=== PATIENT | male | born 1995 | race Caucasian/White ===

== ENCOUNTER 2023-01-12 17:53 | Emergency (ER) | payer OTHER, SELFPAY ==
[2023-01-12 17:57] VITALS: BP 135/86; PULSE 96; RESP 16; TEMP 36.1; O2SAT 100; BMI 28.2
--- NOTE | 2023-01-12 18:12 | ED_ITS ---
HPI - Skin/Abscess/Foreign Bdy General Chief complaint: Skin/Abscess/Foreign Body Stated complaint: R face swelling Time Seen by Provider: 01/12/23 18:02 History of Present Illness HPI narrative: This 27-year-old male comes in reporting 2 days of redness swelling and discomfort in his right cheek and face. He does not report any fevers or sore throat. He does have some increased erythema and swelling over his chin. Related Data Home Medications Medication Instructions Recorded Confirmed dextroamphetamine-amphetamine ER 2 cap PO DAILY 01/12/23 01/12/23 25 mg 24hr capsule,extend release Allergies Allergy/AdvReac Type Severity Reaction Status Date / Time No Known Drug Allergies Allergy Verified 01/12/23 17:57 Review of Systems Status of ROS: Reports: 10 or more systems reviewed and unremarkable except as noted in History and below Narrative: Constitutional: No fevers, no weight gain or loss. Eyes: No discharge. No vision changes. HENT: He reports some right ear pain. Cardiovascular: No chest pain, no palpitations. Respiratory: No shortness of breath, no wheezes, no cough. Gastrointestinal: No abdominal pain, no vomiting, no diarrhea. Genitourinary: No dysuria, no hematuria. Musculoskeletal: Normal range of motion. Skin: No rashes, no pruritis. Erythema, swelling, and pain in the right face and cheek. Neurological: No dizziness, weakness, sensory change, speech change. Endo/Heme/Allergies: No bruising or bleeding. No polydipsia. Pysch: no suicidality, no anxiety, no insomnia. All other systems reviewed and are negative. Exam Narrative: Exam Narrative: Constitutional: Well-developed, well-nourished, no acute distress. HEENT: Erythema along the right cheek with some increased swelling over his chin. Skin changes in this area also are suspicious for impetigo. Neck: Normal range of motion. Nontender. Supple. Heart: Regular. No murmurs. Normal rate. Intact distal pulses. Lungs: Clear to auscultation. No chest discomfort. No wheezes, rhonchi, or rales. Abdomen: Normal bowel sounds. Nontender. No rebound tenderness. Genitalia: Deferred. Back: No midline tenderness. Normal range of motion. Extremities: Normal range of motion. No injury. Skin: Intact. No rash. Warm. No erythema or pallor. Neurologic: No altered sensation. No weakness. Alert and oriented. Psychiatric: No suicidality. No anxiety or depression. No insomnia. Nursing notes and vitals signs are reviewed. Const: Vital Signs, click to edit/add: Vital Signs - 24 hr 01/12/23 17:57 Temperature 97 F L Pulse Rate [Pulse Oximeter] 96 Respiratory Rate 16 Blood Pressure [Ri ght Upper Arm] 135/86 Pulse Oximetry 100 Oxygen Delivery Me thod Room Air Course Vital Signs Vital signs: Initial Vital Signs Temperature 97 F L 01/12/23 17:57 Temperature Source Temporal Artery Scan 01/12/23 17:57 Pulse Rate 96 01/12/23 17:57 Respiratory Rate 16 01/12/23 17:57 Blood Pressure 135/86 01/12/23 17:57 Blood Pressure Mean 102 01/12/23 17:57 Blood Pressure Position Sitting 01/12/23 17:57 Pulse Oximetry 100 01/12/23 17:57 Oxygen Delivery Method Room Air 01/12/23 17:57 Vital Signs Temperature 97 F L 01/12/23 17:57 Pulse Rate 96 01/12/23 17:57 Respiratory Rate 16 01/12/23 17:57 Blood Pressure 135/86 01/12/23 17:57 Pulse Oximetry 100 01/12/23 17:57 Oxygen Delivery Method Room Air 01/12/23 17:57 Temperature 97 F L 01/12/23 17:57 Pulse Rate 96 01/12/23 17:57 Respiratory Rate 16 01/12/23 17:57 Blood Pressure 135/86 01/12/23 17:57 Pulse Oximetry 100 01/12/23 17:57 Oxygen Delivery Method Room Air 01/12/23 17:57 MDM - Skin/Abscess/Foreign Bdy MDM Narrative Medical decision making narrative: This patient has what looks like infection however his chin and some of the right side of his face. It has some semblance of impetigo. There is no drainage that would afford a culture. He has normal vital signs and is afebrile. He did receive a prescription for Bactrim. I advised him to follow- up with his primary physician or return if not improving or if worsening. Discharge Plan Discharge Clinical Impression: Cellulitis Patient Disposition: Home, Self-Care Condition: Unchanged Additional Instructions: Take medication as prescribed. Follow up with MD or return if worsening. Prescriptions: No Action dextroamphetamine-amphetamine 25 mg capsule,extended release 24hr 2 cap PO DAILY Stand Alone Forms: [employer] Info Instructions
== END 2023-01-12 18:39 | disposition home or self-care (01) ==
PROVIDERS: Emergency Provider Emergency Medicine Emergency Medical Services
DX: L03.211 Cellulitis of face (principal)
CPT/HCPCS: 99283; 99284